=== PATIENT | female | born 1995 | race Caucasian/White ===

== ENCOUNTER 2018-08-10 06:25 | Inpatient (IN) ==
[2018-08-10] MEDS ORDERED: LR 1000 ML IV 1,000 ML IV ONE (06:31)
[2018-08-10] MEDS ORDERED: ANCEF 1 GRAM IV PREMIX* 1 G/50 ML BAG IV ONE ×2 (06:31→06:54)
[2018-08-10] MEDS ORDERED: ANCEF VIAL 1 GRAM IVP ONE (06:38)
[2018-08-10] MEDS ORDERED: D5 1/2 NS 1000 ML 1,000 ML IV SCH (06:38)
[2018-08-10] MEDS ORDERED: DURAMORPH ONE (07:17)
[2018-08-10] MEDS ORDERED: XYLOCAINE 1 % (PLAIN) ONE ×2 (07:39→15:47)
[2018-08-10 08:05] LABS: BILIRUBIN,URINE NEGATIVE (NEGATIVE); BLOOD/HEMOGLOBIN,URINE NEGATIVE (NEGATIVE); GLUCOSE, URINE NEGATIVE (NEGATIVE); KETONES,URINE NEGATIVE (NEGATIVE); LEUKOCYTE ESTERASE ,URINE 1+ (NEGATIVE); NITRITES,URINE NEGATIVE (NEGATIVE); PROTEIN,URINE 2+ (NEGATIVE); UROBILINOGEN,URINE 1+ (NORMAL)
[2018-08-10 08:07] LABS: COLOR,URINE DARK YELLOW (YELLOW)
[2018-08-10 08:11] LABS: APPEARANCE,URINE SLIGHTLY HAZY (CLEAR); BACTERIA,URINE TRACE /HPF (NEGATIVE); RBC,URINE 0-2 /HPF (NONE SEEN); SQUAMOUS EPITHELIAL CELL,UR FEW /HPF (NEGATIVE)
[2018-08-10 08:12] LABS: CALCIUM OXALATE CRYSTALS,UR RARE /HPF (NEGATIVE); MUCUS,URINE MODERATE /HPF (NEGATIVE)
[2018-08-10] MEDS ORDERED: PITOCIN ONE ×3 (08:22→15:47)
[2018-08-10] MEDS ORDERED: D5 1/2 NS 1000 ML 1,000 ML IV ONE ×2 (08:22→09:52)
[2018-08-10] MEDS ORDERED: BENADRYL INJ 50 MG VIAL IVP PRN ×2 (09:06→09:35)
[2018-08-10] MEDS ORDERED: ZOFRAN INJ 4 MG VIAL IVP PRN ×2 (09:06→09:35)
[2018-08-10] MEDS ORDERED: REGLAN INJ 10 MG VIAL IVP PRN ×2 (09:06→09:35)
[2018-08-10] MEDS ORDERED: DILAUDID INJ IVP PRN (09:06)
[2018-08-10] MEDS ORDERED: PHENERGAN INJ 25 MG IVP PRN (09:06)
[2018-08-10] MEDS ORDERED: TORADOL 30 MG VIAL IVP PRN (09:35)
[2018-08-10] MEDS ORDERED: MYLICON TAB 80 MG CHEW PO PRN (09:35)
[2018-08-10] MEDS ORDERED: NARCAN INJ IVP PRN (09:35)
[2018-08-10] MEDS ORDERED: ADACEL or BOOSTRIX TDaP VACCINE IM ONE (09:35)
[2018-08-10] MEDS ORDERED: D5 1/2 NS 1000 ML 1,000 ML with PITOCIN 20 UNITS IV SCH ×2 (10:00)
[2018-08-10] MEDS: PERCOCET TAB 5/325 MG PO PRN ×2 (13:48→19:22)
[2018-08-10] MEDS ORDERED: EPHEDRINE SULFATE INJ ONE (15:47)
[2018-08-10] MEDS ORDERED: VERSED ONE (15:47)
[2018-08-10] MEDS ORDERED: MARCAINE SPINAL ONE (15:47)
[2018-08-10] MEDS: ZANTAC PO SCH (20:21)
[2018-08-10] MEDS: MOTRIN TAB 800 MG PO PRN (23:18)
[2018-08-11 05:27] LABS: HEMATOCRIT 30.5 % (36.0-47.0); HEMOGLOBIN 10.6 g/dL (12.0-16.0)
[2018-08-11] MEDS: MOTRIN TAB 800 MG PO PRN ×2 (07:07→15:45)
[2018-08-11] MEDS: ZANTAC PO SCH ×3 (07:07→21:05)
[2018-08-11] MEDS: PRENATAL PLUS PO SCH ×2 (07:07→09:19)
[2018-08-11] MEDS: COLACE CAP 100 MG PO SCH ×2 (09:23→21:05)
[2018-08-11] MEDS: PERCOCET TAB 5/325 MG PO PRN ×3 (11:05→22:53)
[2018-08-11] MEDS: BACTROBAN CREAM TOP SCH ×2 (14:02→21:05)
[2018-08-12] MEDS: MOTRIN TAB 800 MG PO PRN ×2 (02:35→10:45)
[2018-08-12] MEDS: BACTROBAN CREAM TOP SCH (05:32)
[2018-08-12] MEDS: PERCOCET TAB 5/325 MG PO PRN (06:17)
[2018-08-12] MEDS: COLACE CAP 100 MG PO SCH (09:08)
[2018-08-12] MEDS: ZANTAC PO SCH (09:09)
[2018-08-12] MEDS: PRENATAL PLUS PO SCH (09:09)
[2018-08-12 10:12] VITALS: BP 121/70
== END 2018-08-12 11:30 | disposition home or self-care (01) | DRG 765 ==
LOC: LD 06:25 → MED/SURG 09:51
PROVIDERS: ADMIT Specialist; ATTEND Specialist
DX: O98.311 Other infections with a predominantly sexual mode of transmission complicating pregnancy, first trimester; N85.8 Other specified noninflammatory disorders of uterus; Z37.0 Single live birth; O99.214 Obesity complicating childbirth; Z3A.39 39 weeks gestation of pregnancy; O40.3XX0 Polyhydramnios, third trimester, not applicable or unspecified; O34.211 Maternal care for low transverse scar from previous cesarean delivery; E66.01 Morbid (severe) obesity due to excess calories
CPT/HCPCS: 36415; 80048; 80307; 81001; 85014; 85018; 85025; 85610; 85730; 86592; 86850; 86900; 86901; 87086; A4216; A4222; S0197; G0434; J0690; J1200; J1885; J2250; J2590; J3490; J7120; S5010

== ENCOUNTER 2020-03-10 06:22 | Inpatient (IN) ==
[2020-03-10] MEDS ORDERED: LR 1000 ML IV 1,000 ML IV ONE (06:26)
[2020-03-10] MEDS ORDERED: ANCEF 1 GRAM IV PREMIX* 2 G/100 ML BAG IV ONE (06:27)
[2020-03-10] MEDS ORDERED: D5 1/2 NS 1000 ML 1,000 ML IV SCH (06:31)
[2020-03-10] MEDS ORDERED: ANCEF VIAL 1 GRAM IVP ONE (06:31)
[2020-03-10] MEDS ORDERED: DILAUDID INJ ONE ×2 (07:16→09:18)
[2020-03-10] MEDS ORDERED: D5 1/2 NS 1L W PITOCIN 20 UNITS/L 20 UNITS/1,000 ML BAG IV ONE (08:52)
[2020-03-10] MEDS ORDERED: ZOFRAN INJ 4 MG VIAL ONE ×2 (09:19→09:22)
[2020-03-10] MEDS ORDERED: ROBINUL ONE (09:22)
[2020-03-10] MEDS ORDERED: SUPRANE ONE (09:22)
[2020-03-10] MEDS ORDERED: QUELICIN (OR ANECTINE) ONE (09:22)
[2020-03-10] MEDS ORDERED: DIPRIVAN VIAL ONE (09:22)
[2020-03-10] MEDS ORDERED: PITOCIN ONE ×2 (09:22→13:29)
[2020-03-10] MEDS ORDERED: NORCURON INJ 10 MG VIAL ONE (09:22)
[2020-03-10] MEDS ORDERED: NEOSTIGMINE INJ ONE (09:22)
[2020-03-10] MEDS ORDERED: VERSED ONE (09:22)
[2020-03-10] MEDS ORDERED: DILAUDID INJ IVP PRN (09:23)
[2020-03-10] MEDS ORDERED: PHENERGAN INJ 25 MG IM ONE (09:23)
[2020-03-10] MEDS ORDERED: BENADRYL INJ 50 MG VIAL IVP PRN ×2 (09:23→09:50)
[2020-03-10] MEDS ORDERED: REGLAN INJ 10 MG VIAL IVP PRN ×2 (09:23→09:50)
[2020-03-10] MEDS ORDERED: ZOFRAN INJ 4 MG VIAL IVP PRN ×2 (09:23→09:50)
[2020-03-10] MEDS ORDERED: PHENERGAN INJ 25 MG IM PRN (09:23)
[2020-03-10] MEDS ORDERED: ADACEL or BOOSTRIX TDaP VACCINE IM ONE ×2 (09:50→14:32)
[2020-03-10] MEDS ORDERED: TORADOL 30 MG VIAL IVP PRN (09:50)
[2020-03-10] MEDS ORDERED: NARCAN INJ IVP PRN (09:50)
[2020-03-10] MEDS ORDERED: MYLICON TAB 80 MG CHEW PO PRN (09:50)
[2020-03-10] MEDS ORDERED: PERCOCET TAB 5/325 MG PO PRN (09:50)
[2020-03-10] MEDS ORDERED: D5 1/2 NS 1000 ML 1,000 ML with PITOCIN 20 UNITS IV SCH ×2 (10:00)
[2020-03-10] MEDS ORDERED: MORPHINE SULFATE PCA 30 MG ONE (10:12)
[2020-03-10] MEDS: MORPHINE SULFATE PCA 30 MG IVP PRN ×2 (10:15→18:55)
[2020-03-10] MEDS ORDERED: D5 1/2 NS 1000 ML 1,000 ML IV ONE (13:35)
[2020-03-10] MEDS ORDERED: STERILE WATER IRRIGATION IR ONE (15:30)
[2020-03-11] MEDS ORDERED: NS 500 ML IV 500 ML IV ONE (01:06)
[2020-03-11] MEDS: MORPHINE SULFATE PCA 30 MG IVP PRN (01:10)
[2020-03-11 04:55] LABS: HEMATOCRIT 27.4 % (36.0-47.0); HEMOGLOBIN 9.4 g/dL (12.0-16.0)
[2020-03-11] MEDS: PRENATAL PLUS PO SCH (08:03)
[2020-03-11] MEDS: PERCOCET TAB 5/325 MG PO PRN ×4 (10:30→23:24)
[2020-03-11] MEDS: COLACE CAP 100 MG PO SCH ×2 (11:05→21:36)
[2020-03-11] MEDS: BACTROBAN CREAM TOP SCH ×2 (14:28→21:36)
[2020-03-11] MEDS: FERROUS GLUCONATE PO SCH (16:56)
[2020-03-11] MEDS: MOTRIN TAB 800 MG PO PRN (21:44)
[2020-03-12] MEDS: PERCOCET TAB 5/325 MG PO PRN ×2 (04:02→11:20)
[2020-03-12] MEDS: BACTROBAN CREAM TOP SCH (05:05)
[2020-03-12] MEDS: MOTRIN TAB 800 MG PO PRN (07:49)
[2020-03-12] MEDS: FERROUS GLUCONATE PO SCH (08:09)
[2020-03-12] MEDS: PRENATAL PLUS PO SCH (08:09)
[2020-03-12] MEDS: COLACE CAP 100 MG PO SCH (08:09)
[2020-03-12 12:57] VITALS: BP 124/65
== END 2020-03-12 14:00 | disposition home or self-care (01) | DRG 785 ==
LOC: LD 06:22 → MED/SURG 09:55
PROVIDERS: ADMIT Specialist; ATTEND Specialist
DX: Z23 Encounter for immunization; Z37.0 Single live birth; Z3A.38 38 weeks gestation of pregnancy; Z30.2 Encounter for sterilization; Z01.818 Encounter for other preprocedural examination; N85.8 Other specified noninflammatory disorders of uterus; O34.211 Maternal care for low transverse scar from previous cesarean delivery